=== PATIENT | male | born 1970 | race Caucasian/White ===

== ENCOUNTER 2018-01-28 20:09 | Emergency (ER) | payer OTHER, SELFPAY ==
[2018-01-28 20:16] VITALS: BP 150/85; PULSE 91; RESP 22; TEMP 36.6; O2SAT 100
--- NOTE | 2018-01-28 20:47 | DI.RAD.S_ITS ---
PROCEDURE: XR CHEST 1V INDICATIONS: chest pain TECHNIQUE: One view of the chest was acquired. COMPARISON: None. FINDINGS: Surgical changes and devices: None. Lungs and pleura: No pleural effusions or pneumothorax. Lungs are clear. Mediastinum: Mediastinal contours appear normal. Heart size is normal. Bones and chest wall: No suspicious bony lesions. Overlying soft tissues appear unremarkable. IMPRESSION: Normal for age. Source of current symptoms is not seen. Dictated by: Gaudencio Bell M.D. on 01/28/2018 at 21:32 Approved by: Gaudencio Bell M.D. on 01/28/2018 at 21:32
--- NOTE | 2018-01-28 20:53 | PC.NURSE ---
Chest pain and shortness of breath with exertion on and off for 2 weeks. Worsened yesterday and this morning. Pt states it is very sharp and intermittent in the center of his chest. Was recently worked up for possible COPD. Hx of smoking and drinking. Pt states his father in his 50s from an aortic dissection. Denies any other hx.
[2018-01-28 21:03] LABS: Add Manual Diff / Slide Review NO; Eosinophils Percent Auto 5.2 % (2-4); Hematocrit 45.1 % (41-53); Hemoglobin 15.4 g/dL (13.5-17.5); Mean Corpuscular HGB Conc 34.2 % (30-36); Mean Corpuscular Hemoglobin 31.7 PG (26-34); Mean Corpuscular Volume 92.8 fL (80-100); Monocytes Percent Auto 4.8 % (3-14); Neutrophils Absolute Auto 4800 /uL (3000-5900); Platelet Count 261 X10^3/uL (150-400); Red Blood Cell Count 4.86 X10^6/uL (4.5-5.9); Red Cell Distribution Width 14.3 % (11.6-14.8); White Blood Cell Count 8.6 X10^3/uL (4.5-11.0)
[2018-01-28 21:06] LABS: Alanine Aminotransferase 46 IU/L (21-72); Albumin 4.2 g/dL (3.5-5.0); Albumin Globulin Ratio 1.4 (1.0-2.8); Alkaline Phosphatase 118 U/L (38-126); Aspartate Aminotransferase 32 IU/L (17-59); BUN Creatinine Ratio 11.3 (6-22); Bilirubin Total 0.4 mg/dL (0.2-1.3); Blood Urea Nitrogen 9 mg/dL (9-20); Calcium 9.2 mg/dL (8.4-10.2); Carbon Dioxide 27 mmol/L (22-32); Chloride 103 mmol/L (98-107); Creatine Kinase 79 U/L (55-170); Estimated Glomerular Filt Rate > 60.0 mL/min (>60); Glucose 153 mg/dL (70-100); HEMOLYSIS 19 (0-50); Lipase 87 U/L (23-300); Potassium 3.9 mmol/L (3.4-5.1); Sodium 139 mmol/L (137-145); Total Protein 7.2 g/dL (6.3-8.2)
--- NOTE | 2018-01-28 21:14 | DI.CT.S_ITS ---
PROCEDURE: CT ANGIO CHEST ABDOMEN INDICATIONS: chest pain radiating to back - family hx of dissection TECHNIQUE: Precontrast 5 mm thick sections acquired from the lung apices to the iliac crests. After the administration of intravenous contrast, 2.5 mm thick sections again acquired from the lung apices to the iliac crests. 10 mm maximum intensity projection (MIP) oblique sagittal and coronal reformats were then acquired. For radiation dose reduction, the following was used: automated exposure control. COMPARISON: None. FINDINGS: Image quality: Excellent. AORTA: Intramural hematoma: Absent Maximum hematoma thickness: Not applicable. Focal contrast enhancement: Intramural blood pool (< 2 mm neck or imperceptible communication with aortic lumen): Absent. Ulcer-like projection (broad communication with aortic lumen > 3 mm): Absent. Dissection: Absent Jose classification: Not applicable Maximum aortic diameter: 3.3 cm. [If [place] A dissection, > 5.0 cm has a poorer prognosis. If Jose B dissection, > 4.0 cm has a poorer prognosis.] Periaortic hematoma: Absent. CHEST: Lungs and pleura: No acute airspace opacities. 6 mm nodule noted in the left lung base (series 6, image 76. 2 mm nodule noted in the left lung base (series 6, image 71). 4 mm nodule in the left lung base (series 6, image 80). No pleural effusions or pneumothorax. Central and peripheral airways are patent and normal in caliber. Mediastinum: Heart size is normal. No pericardial effusion. No mediastinal or hilar adenopathy by size criteria. Central pulmonary arteries are normal in size. Esophagus is normal in caliber. No hiatal hernias. Bones and chest wall: No axillary adenopathy by size criteria. Thyroid gland is within normal limits where visualized. No suspicious bony lesions. No vertebral body compression fractures. ABDOMEN: Vasculature: Celiac trunk and mesenteric arteries are patent. Renal arteries are also patent. Solid organs: Liver is normal in size and enhancement. Gallbladder is within normal limits. Biliary system is non dilated. Pancreas enhances normally. Spleen is normal in size and enhancement. No adrenal nodules. Both kidneys are normal in size and enhancement, without hydronephrosis. Peritoneum and bowel: No free fluid or air. Bowel loops are normal in caliber and wall thickness. Visualized appendix is normal. Nodes and vessels: No retroperitoneal or mesenteric adenopathy by size criteria. Inferior vena cava is normal in morphology. Bones: No suspicious bony lesions. No vertebral body compression fractures. Spine degenerative disc disease and facet arthropathy. Miscellaneous: No ventral hernias. IMPRESSION: 1. No evidence of aortic dissection or aortic aneurysm. 2. No acute disease process. 3. Small, bibasilar subpleural lung nodules. Largest nodule measures 6 mm in diameter. Recommend followup imaging 6-12 months based on criteria outlined below. Fleischner Society criteria for SOLID lung nodule followup. Nodule size (mm)Low-risk patientHigh-risk patient<6 (single or multiple)No routine followup.Optional CT at 12 months. 6-8 (single or multiple)CT at 6-12 months, then optional CT at 18-24 mo.CT at 6-12 months, then CT at 18-24 months. >8 (single)CT at 3 months, PET-CT, or biopsy. Same as for low-risk pts. >8 (multiple)CT at 3-6 months, then optional CT at 18-24 mo.CT at 3-6 months, then CT at 18-24 months. Recommendations do not apply to lung cancer screening, patients with immunosuppression, or patients with known primary cancer. Dictated by: Teresita Lanza MD, PhD on 01/29/2018 at 7:53 Approved by: Teresita Lanza MD, PhD on 01/29/2018 at 8:03
[2018-01-28 21:25] LABS: Troponin I < 0.012 ng/mL (0.01-0.034)
[2018-01-28 22:01] VITALS: BP 126/69; PULSE 81; RESP 17; O2SAT 98
[2018-01-28 22:20] LABS: Bacteria Urine None Seen; RBC Urine None Seen (0-5/HPF); WBC Urine None Seen (0-5/HPF)
[2018-01-28 22:29] VITALS: BP 126/82; PULSE 89; RESP 18; O2SAT 97
[2018-01-28 22:39] LABS: Culture Indicated Urine Cult Not Indicated; Urine Comments Microscopic Normal
[2018-01-28 22:51] VITALS: BP 124/75; PULSE 84; RESP 24; O2SAT 97
--- NOTE | 2018-01-28 23:13 | ED_ITS ---
HPI - Chest Pain General Chief Complaint: Chest Pain Stated Complaint: CHEST PAIN History of Present Illness HPI narrative: HPI 43 y/o male presents for evaluation of 1 day of substernal chest pain that mildly radiates anteriorly/posteriorly and has been waxing and waning from mild to 6/10 and lasts for several minutes at a time. Patient is a lifelong smoker. Family history notable for a genetic concern for dissection (father w/o risk factors in early 50s due to dissection). Patient denies recent immobilization, leg trauma, estrogen use, surgery in the last four weeks, hemoptysis, or malignancy in the last 6 months. M/S/F/SocHx notable for: please see HPI; remainder reviewed with patient and in chart. ROS: Negative constitutional, eye, cardiovascular, pulmonary, GI, , MSK, skin , neurologic, psychiatric, endocrine unless noted in the HPI. Exam Gen: Pleasant, non-toxic appearing, resting comfortably. HEENT: NC, AT, PEERL, EOMI. Resp: Clear to auscultation bilaterally, normal work of breathing. Card: RRR with no M/R/G, no crackles in lung bases, no pedal edema, no JVD appreciated. GI: NT/ND Vascular: Both ankles, calves, and thighs of equal size, no calf tenderness to palpation bilaterally. MSK: No chest wall TTP. No visible deformities, strength and tone WNL. Skin: Normal color with no visible lesions. Neuro: AO x 3, no facial asymmetry, vision and hearing WNL. Psych: Mood and affect appropriate. Labs / Imaging (pertinent): WBC 8.6, Hb 1.54, Na 139, K 3.9. Troponin < 0.012 EKG: SR at 90 bpm, no ME segment depressions, no new ST segment changes, new LBBB, or T-wave changes that would suggest acute ischemia. CTA Chest: no CT evidence of acute intrathoracic or acute intra-abdominal pathology. MDM Previous chart, nursing note, and vitals reviewed. A: 43 y/o male presents for evaluation of 1 day of substernal chest pain that mildly radiates anteriorly/posteriorly and has been waxing and waning from mild to 6/10 and lasts for several minutes at a time. DDx and Evaluation: * ACS - doubt ACS given a non-ischemic EKG and a negative troponin greater than six hours from maximal symptom onset. * UA - unlikely given the atypical history and alternate diagnosis. HEART score 1 (Hx - 0, EKG - 0, age - 0, risk factors - 1, troponin - 0; 30 day MACE: less than or equal to 1.7%). * Pericarditis - consider pericarditis unlikely given the lack of ME segment depressions as well as the absence of diffuse ST-segment elevations, lack of reduction of pain when supine, and lack of a friction rub. * Myocarditis - unlikely given the negative troponin and an EKG without characteristic ME-segment or ST-segment changes. * Dissection - no evidence by imaging. * PE - low clinical suspicion given history and alternate diagnosis, further risk stratification (e.g.) Well's not indicated. * Mediastinal Air - no evidence by CXR or auscultation. * Pneumothorax - no evidence by CXR or physical exam. * MSK - doubt given lack of reproducibility on exam. * Endocarditis - no identifiable risk factors, patient afebrile, no new murmurs appreciated on exam; doubt. * GI (Esophageal rupture, GERD) - esophageal rupture effectively excluded given the lack of mediastinal widening, non-toxic appearance, and lack of identifiable risk factors. While not definitively excluded, further evaluation of GERD is deferred to an outpatient setting. ED Course: Vital signs remained stable and within clinically acceptable limits. Disposition: Discharge with PCP follow up. Return to care precautions given verbally and in writing. Impression: Chest Pain. (please reference below for remainder of encounter information) Exam Initial Vital Signs Initial Vital Signs: Vital Signs Temperature 97.9 F 01/28/18 20:16 Pulse Rate 91 H 01/28/18 20:16 Respiratory Rate 22 01/28/18 20:16 Blood Pressure 150/85 H 01/28/18 20:16 Pulse Oximetry 100 01/28/18 20:16 Course Orders Ordered: ED Orders 01/28/18 20:34 Complete Blood Count AUTO DIFF Stat Comprehensive Metabolic Panel Stat Lipase Stat Troponin with CK Cardiac Panel Stat 01/28/18 20:47 XR chest 1V Stat 01/28/18 21:14 CT angio chest abdomen Stat 01/28/18 22:17 Urine Microscopic Stat Discontinued Medications Aspirin (Aspirin Chew) 324 mg PO NOW ONE Stop: 01/28/18 20:48 Last Admin: 01/28/18 21:37 Dose: Vital Signs - 8 hr 01/28/18 20:16 01/28/18 22:01 01/28/18 22:29 Temperature 97.9 F Pulse Rate 91 H 81 89 Respiratory Rate 22 17 18 Blood Pressure 150/85 H Blood Pressure [Left Arm] 126/69 H 126/82 H Pulse Oximetry 100 98 97 01/28/18 22:51 Temperature Pulse Rate 84 Respiratory Rate 24 Blood Pressure Blood Pressure [Left Arm] 124/75 H Pulse Oximetry 97 MDM - Chest Pain Lab Data Result diagrams: 01/28/18 20:34 01/28/18 20:34 Lab Results 01/28/18 01/28/18 01/28/18 Range/Units 20:34 20:34 22:17 WBC 8.6 (4.5-11.0) X10^3/uL RBC 4.86 (4.5-5.9) X10^6/uL Hgb 15.4 (13.5-17.5) g/dL Hct 45.1 (41-53) % MCV 92.8 (80-100) fL MCH 31.7 (26-34) PG MCHC 34.2 (30-36) % RDW 14.3 (11.6-14.8) % Plt Count 261 (150-400) X10^3/uL Neut % (Auto) 56.0 (50-75) % Lymph % (Auto) 33.0 (25-40) % [place] % (Auto) 4.8 (3-14) % Eos % (Auto) 5.2 H (2-4) % Baso % (Auto) 1.0 (0-2) % Neut # (Auto) 4800 (9664-0800) /uL Sodium 139 (137-145) mmol/L Potassium 3.9 (3.4-5.1) mmol/L Chloride 103 (98-107) mmol/L Carbon Dioxide 27 (22-32) mmol/L BUN 9 (9-20) mg/dL Creatinine 0.80 (0.66-1.25) mg/dL Estimated GFR > 60.0 (>60) mL/min BUN/Creatinine Ratio 11.3 (6-22) Glucose 153 H (70-100) mg/dL Calcium 9.2 (8.4-10.2) mg/dL Total Bilirubin 0.4 (0.2-1.3) mg/dL AST 32 (17-59) IU/L ALT 46 (21-72) IU/L Alkaline Phosphatase 118 (38-126) U/L Total Creatine Kinase 79 (55-170) U/L CK-MB (CK-2) TNP Troponin I < 0.012 (0.01-0.034) ng/mL Total Protein 7.2 (6.3-8.2) g/dL Albumin 4.2 (3.5-5.0) g/dL Globulin 3.0 (1.7-4.1) g/dL Albumin/Globulin Ratio 1.4 (1.0-2.8) Lipase 87 (23-300) U/L Urine RBC None seen (0-5/HPF) Urine WBC None seen (0-5/HPF) Urine Bacteria None seen (None) Ur Culture Indicated? Cult not indicated Micro UA Comment Microscopic normal
== END 2018-01-28 23:20 | disposition home or self-care (01) ==
PROVIDERS: Emergency Provider Emergency Medicine
DX: R07.89 Other chest pain (principal)
CPT/HCPCS: 36591; 71045; 71275; 74175; 80053; 81003; 81015; 82550; 82553; 83690; 84484; 85025; 93005; 99283; 99285; Q9967

== ENCOUNTER 2018-08-28 16:39 | Emergency (ER) | payer OTHER, SELFPAY ==
[2018-08-28] VITALS (7 sets, daily range): BP systolic 104–148; BP diastolic 69–96; PULSE 76–93; RESP 12–20; TEMP 36.4; O2SAT 93–99; BMI 34.8
--- NOTE | 2018-08-28 16:45 | DI.RAD.S_ITS ---
PROCEDURE: XR CHEST 1V INDICATIONS: Chest pain. TECHNIQUE: One view of the chest was acquired. COMPARISON: [facility], CR, XR CHEST 1V, 01/28/2018, 21:02. FINDINGS: Surgical changes and devices: Multiple monitoring leads project of the chest. Lungs and pleura: Lungs are clear. No pleural effusions or pneumothorax. There is prominence of the pulmonary vasculature bilaterally. Mediastinum: Mediastinal contours appear normal. Heart size is normal. Bones and chest wall: No acute osseous abnormality. IMPRESSION: No acute cardiopulmonary disease. Dictated by: Faisal Connors M.D. on 08/28/2018 at 17:08 Approved by: Faisal Connors M.D. on 08/28/2018 at 17:09
[2018-08-28 17:00] LABS: Add Manual Diff / Slide Review NO; Basophils Absolute Auto 100 /uL (0-100); Basophils Percent Auto 0.7 % (0-2); Eosinophils Absolute Auto 300 /uL (0-450); Eosinophils Percent Auto 3.5 % (2-4); Hematocrit 45.9 % (41-53); Hemoglobin 15.9 g/dL (13.5-17.5); Lymphocytes Absolute Auto 3600 /uL (1100-4500); Lymphocytes Percent Auto 40.1 % (25-40); Mean Corpuscular HGB Conc 34.7 % (30-36); Mean Corpuscular Hemoglobin 31.5 PG (26-34); Mean Corpuscular Volume 90.7 fL (80-100); Monocytes Absolute Auto 800 /uL (0-900); Monocytes Percent Auto 8.7 % (3-14); Neutrophils Absolute Auto 4200 /uL (1500-7000); Platelet Count 312 X10^3/uL (150-400); Red Blood Cell Count 5.06 X10^6/uL (4.5-5.9); White Blood Cell Count 8.9 X10^3/uL (4.5-11.0)
--- NOTE | 2018-08-28 17:14 | ED.CHESTPAIN ---
HPI - Chest Pain General Chief Complaint: Chest Pain Stated Complaint: CHEST PAIN Time Seen by Provider: 08/28/18 17:00 Source: patient Mode of arrival: ambulatory Limitations: no limitations History of Present Illness HPI narrative: Patient is a 48-year-old male who presents with chest pain has been ongoing for at least a month. Has progressively gotten worse over the last 3 days. He describes it is in the center of his chest sharp stabbing lasting only a few seconds it is much worse when he lies flat. He is able to sleep on his side throughout the night without any difficulty. He denies any specific pain with exertion but he does get short of breath with exertion. He does complain of weight gain of 50 lb. He denies any fever or chills no productive cough. He feels like his extremities are edematous. He has been taking naproxen and Prilosec. Without any relief He is self-diagnosed himself with pericarditis and possibly constrictive pericarditis. MD complaint: chest pain Related Data Home Medications Medication Instructions Recorded Confirmed albuterol sulfate [ProAir HFA] 1 puff INHALATION PRN PRN 08/28/18 08/28/18 fluticasone-salmeterol [Advair HFA] 1 puff INHALATION BID 08/28/18 08/28/18 naproxen 500 mg PO BID 08/28/18 08/28/18 omeprazole 20 mg PO DAILY 08/28/18 08/28/18 varenicline [Chantix Continuing 08/28/18 Month Box] Previous Rx's Medication Instructions Recorded ibuprofen 800 mg PO TID PRN #60 tab 08/28/18 Allergies Allergy/AdvReac Type Severity Reaction Status Date / Time No Known Drug Allergies Allergy Verified 08/28/18 16:46 Review of Systems Review of Systems Constitutional Denies chills, Denies fever(s), Denies lethargy and Denies weakness Cardiovascular Reports chest pain, Denies syncope, Reports pedal edema, Reports dyspnea on exertion and Denies orthopnea Respiratory Denies chest congestion, Reports pain with cough, Reports dyspnea on exertion and Denies wheezing Gastrointestinal Gastrointestinal: Denies abdominal pain, Denies change in bowel habits, Denies diarrhea, Denies nausea and Denies vomiting Genitourinary Denies hematuria, Denies flank pain, Denies urinary incontinence and Denies urinary urgency Musculoskeletal Denies back pain, Denies muscle weakness, Denies numbness and Denies tingling Integumentary/Breasts Denies pruritus, Denies erythema, Denies rash and Denies wounds Neurologic Denies syncope, Denies numbness, Denies tingling and Denies weakness Allergic/Immunologic Denies wheezing PFSH Family History Father Ascending aortic dissection Social History Smoking Status: Current every day smoker Family History Father Ascending aortic dissection Social History Smoking Status: Current every day smoker Exam Initial Vital Signs Initial Vital Signs: Vital Signs Temperature 97.6 F 08/28/18 16:46 Pulse Rate 93 H 08/28/18 16:46 Respiratory Rate 18 08/28/18 16:46 Blood Pressure 148/96 H 08/28/18 16:46 Pulse Oximetry 98 08/28/18 16:46 GENERAL: Well-appearing, well-nourished and in no acute distress. HEENT: Head atraumatic,EOMI, pupils reactive, CARDIOVASCULAR: Regular rate and rhythm without murmurs, rubs or gallops. RESPIRATORY: Breath sounds equal bilaterally, no wheezes rales or rhonchi. ABDOMEN: Soft, slightly distended no pain no guarding no rebound EXTREMITIES: Normal range of motion, no clubbing or edema. Neurovascularly intact NEUROLOGICAL: Alert and oriented x4.Normal gait and speech. SKIN: Warm, dry, no laceration, no petechiae, no rashes or lesions. Scores PERC Score Age greater than or equal to 50 years: No Heart rate greater than or equal to 100 bpm: No Room Air O2 Sat less than 95%: No Unilateral leg swelling: No Recent trauma or surgery: No Hemoptysis: No Prior PE or DVT: No Hormone Use: No Total PERC Score: 0 Wells' Criteria for PE Clinical signs and symptoms of PE: No PE is #1 Dx or equally likely: No Heart rate > 100: No Immobilization at least 3 days or surg in previous 4 weeks: No History of PE or DVT: No Hemoptysis: No Malignancy w/Treatment within 6 months or palliative: No Wells' PE Score total: 0 Course Orders Ordered: ED Orders 08/28/18 16:45 XR chest 1V Stat EKG-12 Lead Stat 08/28/18 16:50 BNP [B Type Natriuretic Peptide] Stat Complete Blood Count AUTO DIFF Stat Comprehensive Metabolic Panel Stat D Dimer Stat Lipase Stat Partial Thromboplastin Time Stat Prothrombin Time INR Stat Troponin & CK Cardiac Panel Stat Nitroglycerin (Nitrostat) 0.4 mg SL [id number] PRN PRN Reason: Chest Pain Discontinued Medications Albuterol (Ventolin) 2.5 mg INH NOW ONE Stop: 08/28/18 17:47 Last Admin: 08/28/18 18:24 Dose: 2.5 mg Aspirin (Aspirin Chew) 324 mg PO NOW ONE Stop: 08/28/18 16:46 Last Admin: 08/28/18 18:29 Dose: 324 mg Ketorolac Tromethamine (Toradol) 30 mg IV NOW ONE Stop: 08/28/18 17:46 Last Admin: 08/28/18 18:29 Dose: 30 mg Pantoprazole Sodium (Protonix) 40 mg IV NOW ONE Stop: 08/28/18 17:46 Last Admin: 08/28/18 18:29 Dose: 40 mg Vital Signs - 8 hr 08/28/18 16:46 08/28/18 17:00 08/28/18 17:30 Temperature 97.6 F Pulse Rate 93 H 82 78 Respiratory Rate 18 20 19 Blood Pressure 148/96 H Blood Pressure [Left Arm] 126/77 117/80 Pulse Oximetry 98 99 99 08/28/18 18:00 08/28/18 18:25 08/28/18 18:30 Temperature Pulse Rate 81 76 87 Respiratory Rate 12 18 20 Blood Pressure Blood Pressure [Left Arm] 118/74 104/69 Pulse Oximetry 98 98 93 MDM - Chest Pain Lab Data Attestation: I reviewed the patient's lab results. Result diagrams: 08/28/18 16:50 08/28/18 16:50 Lab Results 08/28/18 08/28/18 08/28/18 Range/Units 16:50 16:50 16:50 WBC 8.9 (4.5-11.0) X10^3/uL RBC 5.06 (4.5-5.9) X10^6/uL Hgb 15.9 (13.5-17.5) g/dL Hct 45.9 (41-53) % MCV 90.7 (80-100) fL MCH 31.5 (26-34) PG MCHC 34.7 (30-36) % RDW 14.0 (11.6-14.8) % Plt Count 312 (150-400) X10^3/uL Neut % (Auto) 47.0 L (50-75) % Lymph % (Auto) 40.1 H (25-40) % [place] % (Auto) 8.7 (3-14) % Eos % (Auto) 3.5 (2-4) % Baso % (Auto) 0.7 (0-2) % Neut # (Auto) 4200 (8624-5096) /uL Lymph # (Auto) 3600 (9220-3769) /uL [place] # (Auto) 800 (0-900) /uL Eos # (Auto) 300 (0-450) /uL Baso # (Auto) 100 (0-100) /uL PT 11.4 (10.1-12.7) SECONDS INR 1.0 (0.9-1.3) APTT 33 (26.4-36.2) SECONDS D-Dimer Sodium 139 (137-145) mmol/L Potassium 4.3 (3.4-5.1) mmol/L Chloride 103 (98-107) mmol/L Carbon Dioxide 26 (22-32) mmol/L BUN 21 H (9-20) mg/dL Creatinine 0.90 (0.66-1.25) mg/dL Estimated GFR > 60.0 (>60) mL/min BUN/Creatinine Ratio 23.3 H (6-22) Glucose 102 H (70-100) mg/dL Calcium 9.4 (8.4-10.2) mg/dL Total Bilirubin 0.4 (0.2-1.3) mg/dL AST 46 (17-59) IU/L ALT 67 (21-72) IU/L Alkaline Phosphatase 116 (38-126) U/L Total Creatine Kinase 81 (55-170) U/L CK-MB (CK-2) TNP CK-MB (CK-2) Rel Index TNP Troponin I < 0.012 (0.01-0.034) ng/mL B-Natriuretic Peptide (<100) Total Protein 7.7 (6.3-8.2) g/dL Albumin 4.5 (3.5-5.0) g/dL Globulin 3.2 (1.7-4.1) g/dL Albumin/Globulin Ratio 1.4 (1.0-2.8) Lipase 102 (23-300) U/L 08/28/18 08/28/18 Range/Units 16:50 16:50 WBC (4.5-11.0) X10^3/uL RBC (4.5-5.9) X10^6/uL Hgb (13.5-17.5) g/dL Hct (41-53) % MCV (80-100) fL MCH (26-34) PG MCHC (30-36) % RDW (11.6-14.8) % Plt Count (150-400) X10^3/uL Neut % (Auto) (50-75) % Lymph % (Auto) (25-40) % [place] % (Auto) (3-14) % Eos % (Auto) (2-4) % Baso % (Auto) (0-2) % Neut # (Auto) (0959-5633) /uL Lymph # (Auto) (4150-3266) /uL [place] # (Auto) (0-900) /uL Eos # (Auto) (0-450) /uL Baso # (Auto) (0-100) /uL PT (10.1-12.7) SECONDS INR (0.9-1.3) APTT (26.4-36.2) SECONDS D-Dimer TNP Sodium (137-145) mmol/L Potassium (3.4-5.1) mmol/L Chloride (98-107) mmol/L Carbon Dioxide (22-32) mmol/L BUN (9-20) mg/dL Creatinine (0.66-1.25) mg/dL Estimated GFR (>60) mL/min BUN/Creatinine Ratio (6-22) Glucose (70-100) mg/dL Calcium (8.4-10.2) mg/dL Total Bilirubin (0.2-1.3) mg/dL AST (17-59) IU/L ALT (21-72) IU/L Alkaline Phosphatase (38-126) U/L Total Creatine Kinase (55-170) U/L CK-MB (CK-2) CK-MB (CK-2) Rel Index Troponin I (0.01-0.034) ng/mL B-Natriuretic Peptide < 100 (<100) Total Protein (6.3-8.2) g/dL Albumin (3.5-5.0) g/dL Globulin (1.7-4.1) g/dL Albumin/Globulin Ratio (1.0-2.8) Lipase (23-300) U/L ECG Data Attestation: I personally reviewed and interpreted this ECG as follows: Prior ECG tracings: not available for review Interpretation: EKG 1. Significant artifact but sinus rhythm rate 80 EKG 2. Normal sinus rhythm rate 79 no p.r. depression IN interval [address] changes MDM Narrative Medical decision making narrative: Patient does have signs and symptoms consistent with pericarditis. I did do a bedside ultrasound I did not appreciate any pericardial effusion. He certainly does not have any signs of acute tamponade and remains hemodynamically stable. He is not of been maxed out on NSAIDs. In fact I would change him to ibuprofen 800 mg 3 times a day for 2-4 weeks. Then if he fails that he would need colchicine. Do recommend that he possibly see Cardiology and possibly have an echocardiogram as outpatient. I also think that restarting his Advair will help his increased shortness of breath with exertion. Patient is a low risk for PE. D-dimer was ordered unfortunately not able to be done due to hyperlipidemia in the blood. I did discuss this result with the patient as well and recommended he have his cholesterol recheck. He denies eating any fatty foods of right before arrival. Discharge Plan Departure Patient Disposition: Home Clinical Impression: Pericarditis Instructions: Pericarditis -- Adult Activity Restrictions/Additional Instructions: *You have been diagnosed with pericarditis *What to do: You may require cardiology consultation and/or echocardiogram if you do not respond to medication and treatment *Continue to take medications as directed -stop taking naproxen Ibuprofen 800 mg 3 times a day for 2 weeks-->sent to [facility] in [place] *Follow up with your primary care provider in 2-3 days *Return to ER if you should have increasing pain, shortness of breath, fever or any new, worsening or concerning symptoms Prescriptions: New ibuprofen 800 mg tablet 800 mg PO TID PRN (Reason: pain) Qty: 60 RF: 0 No Action fluticasone-salmeterol [Advair HFA] 230-21 mcg/actuation HFA aerosol inhaler 1 puff Inhalation BID RF: 0 varenicline [Chantix Continuing Month Box] 1 mg tablet RF: 0 omeprazole 20 mg capsule,delayed release(/EC) 20 mg PO DAILY RF: 0 albuterol sulfate [ProAir HFA] 90 mcg/actuation HFA aerosol inhaler 1 puff Inhalation PRN PRN (Reason: Shortness Of Breath) RF: 0 naproxen 500 mg tablet 500 mg PO BID RF: 0 Referrals: [facility] [Provider Group] Provider,Conversion [Non-Staff] -
[2018-08-28 17:18] LABS: Alanine Aminotransferase 67 IU/L (21-72); Albumin 4.5 g/dL (3.5-5.0); Albumin Globulin Ratio 1.4 (1.0-2.8); Alkaline Phosphatase 116 U/L (38-126); Aspartate Aminotransferase 46 IU/L (17-59); BUN Creatinine Ratio 23.3 (6-22); Bilirubin Total 0.4 mg/dL (0.2-1.3); Blood Urea Nitrogen 21 mg/dL (9-20); Calcium 9.4 mg/dL (8.4-10.2); Carbon Dioxide 26 mmol/L (22-32); Chloride 103 mmol/L (98-107); Creatine Kinase 81 U/L (55-170); Estimated Glomerular Filt Rate > 60.0 mL/min (>60); Globulin 3.2 g/dL (1.7-4.1); Glucose 102 mg/dL (70-100); HEMOLYSIS 27 (0-50); Lipase 102 U/L (23-300); PTT Partial Thromboplastin Tim 33 SECONDS (26.4-36.2); Potassium 4.3 mmol/L (3.4-5.1); Prothrombin Time 11.4 SECONDS (10.1-12.7); Sodium 139 mmol/L (137-145); Total Protein 7.7 g/dL (6.3-8.2)
[2018-08-28 17:24] LABS: Troponin I < 0.012 ng/mL (0.01-0.034)
[2018-08-28 17:34] LABS: B Type Natriuretic Peptide < 100 (<100)
--- NOTE | 2018-08-28 18:18 | PC.NURSE ---
pt states pain is worse when lying down and better when he sits up.
[2018-08-28] MEDS: ALBUTEROL 2.5 MG/3 ML NEB (ADULT) INH (18:24)
[2018-08-28] MEDS: PANTOPRAZOLE 40 MG VIAL IV (18:29)
[2018-08-28] MEDS: ASPIRIN 81 MG TAB 324 MG PO (18:29)
[2018-08-28] MEDS: KETOROLAC 60 MG/2 ML VIAL 30 MG IV (18:29)
== END 2018-08-28 19:50 | disposition home or self-care (01) ==
PROVIDERS: Emergency Provider Emergency Medicine
DX: I31.9 Disease of pericardium, unspecified (principal)
CPT/HCPCS: 36591; 71045; 80053; 82550; 83690; 83880; 84484; 85025; 85610; 85730; 93005; 93041; 94640; 96374; 96375; 99284; 99285; C9113; J1885; J7613

== ENCOUNTER → 2018-11-27 16:18 | Outpatient (CLI) | payer OTHER, SELFPAY ==
[2018-11-27 17:23] LABS: Erythrocyte Sedimentation Rate 1 MM/HR (0-15)
== END ==
PROVIDERS: Visit Provider Internal Medicine Cardiovascular Disease
DX: R07.89 Other chest pain (principal); R00.2 Palpitations
CPT/HCPCS: 36415; 85651; 86850

== ENCOUNTER 2019-03-05 11:31 | Day surgery (SDC) | payer OTHER, SELFPAY ==
--- NOTE | 2019-03-05 | PATH_ITS ---
[facility] Accession Number: [id number] . 01 Material submitted: . PART A: gastrointestinal site - GASTRIC BODY AND ANTRUM PART B: esophagus - ESOPHAGEAL BIOPSIES PART C: colon - CECAL POLYP PART D: colon - TRANSVERSE COLON POLYP X2 . 01 Clinical history: . A: FOR H.PYLORI B: RULE OUT EOE . 02 Diagnosis: A. Stomach, Body and Antrum, Biopsies: Antral and body-type mucosa with no diagnostic abnormality. Negative for Helicobacter by immunohistochemistry. Negative for intestinal metaplasia. Negative for dysplasia and malignancy. . B. Esophagus, Biopsies: Squamous epithelium with no diagnostic abnormality. Intraepithelial eosinophils are not increased. Negative for dysplasia and malignancy. . C. Cecum, Polyp, Biopsy: Benign lymphoid aggregate. . D. Transverse Colon, Polyps x2, Biopsies: Sessile serrated adenomas. [facility]/03/07/2019 . 02 Electronically signed: . Narcisa Li MD, Pathologist NPI- [id number] . 01 Gross description: . Part A: GASTRIC BODY AND ANTRUM: Received in formalin are 3 fragment(s) of liz, soft tissue measuring 0.1 x 0.1 x 0.1 cm to 0.3 x 0.2 x 0.2 cm which is entirely submitted and submitted entirely in 1 cassette(s) Part B: ESOPHAGEAL BIOPSIES: Received in formalin are 3 fragment(s) of liz, soft tissue measuring 0.1 x 0.1 x 0.1 cm to 0.3 x 0.1 x 0.1 cm which is entirely submitted and submitted entirely in 1 cassette(s) Part C: CECAL POLYP: Received in formalin is 1 fragment(s) of liz, soft tissue measuring 0.4 x 0.2 x 0.2 cm which is entirely submitted and submitted entirely in 1 cassette(s) Part D: TRANSVERSE COLON POLYP X2: Received in formalin are 2 fragment(s) of liz, soft tissue measuring 0.3 x 0.3 x 0.2 cm to 0.6 x 0.5 x 0.3 cm which is entirely submitted and submitted entirely in 1 cassette(s) /DM /DM . 02 Microscopic: . A. An immunohistochemical stain was performed to evaluate for Helicobacter organisms and is negative. The control stain showed appropriate reactivity. . * This test was developed and its performance characteristics determined by [facility]. It has not been cleared or approved by the U.S. Food and Drug Administration. The FDA has determined that such clearance or approval is not necessary. This test is used for clinical purposes. It should not be regarded as investigational or for research. . 02 Pathologist provided ICD-10: D12.3 . 02 CPT . 482837, 191864, 090700, 458595, X03655 Performed at: [facility] [address] [place] [address], [place], [place] [id number] MD Luis Carlos Mcfarland MD Phone: [phone] Performed at: 02 [facility] [address] [place], [place] [id number] MD Narcisa Li MD Phone: [phone]
--- NOTE | 2019-03-05 07:53 | PM.HP.1 ---
History of Present Illness Date Patient Seen: 03/05/19 Chief complaint: [id number]*Collect $61 copay* Narrative: 48-year-old male who I had seen in the office 01/06/2019 for left lower quadrant pain, and GERD symptoms, atypical chest pain; who is here for evaluation by means of colonoscopy and upper endoscopy. CT abdomen pelvis 01/15/2018 shows fatty liver otherwise normal bowel. Patient History Medical History (Updated 03/05/19 @ 12:20 by Laquita Berry RN) Atypical chest pain (Acute) COPD (chronic obstructive pulmonary disease) (Acute) Enlarged prostate (Acute) Former smoker (Acute) GERD (gastroesophageal reflux disease) (Acute) Palpitations (Acute) Weight gain (Acute) Surgical History (Updated 03/05/19 @ 12:12 by Laquita Berry RN) H/O left inguinal hernia repair (Acute) History of tonsillectomy and adenoidectomy (Acute) Family History (Updated 08/28/18 @ 17:20 by Jie Brock DO) Father Ascending aortic dissection Social History household members: spouse Smoking Status: Current every day smoker Family & Social History Family History (Updated 08/28/18 @ 17:20 by Jie Brock DO) Father Ascending aortic dissection Tobacco & Substance use: Smoking Status Current every day smoker alcohol intake frequency holiday/special occasion Substance Use Type does not use Meds Home Medications Medication Instructions Recorded Confirmed Type albuterol sulfate [ProAir HFA] 1 puff INHALATION PRN PRN 08/28/18 03/05/19 History fluticasone propion-salmeterol 1 puff INHALATION BID 08/28/18 03/05/19 History [Advair HFA] omeprazole 20 mg PO DAILY 08/28/18 03/05/19 History Allergies Allergy/AdvReac Type Severity Reaction Status Date / Time No Known Drug Allergies Allergy Verified 03/05/19 12:08 Exam Narrative Exam Narrative: General: Patient is obese, not in apparent distress Cardiovascular: Regular rate and rhythm, no murmurs, rubs, or gallops; no evidence of edema; no palpable abdominal aortic aneurysm Gastrointestinal: Normoactive bowel sounds, soft, nontender, nondistended, no rebound tenderness, no hepatosplenomegaly, no evidence of hernia Assessment & Plan Assessment & Plan narrative: 48-year-old male with a history of GERD symptoms and left lower quadrant pain here for an EGD and colonoscopy for further evaluation. Regarding the procedure(s), the risks and potential complications, benefits, and alternatives (including not doing the procedure) were discussed with the patient. The risks include but are not limited to bleeding, splenic injury, infection, perforation which may require surgical intervention, missed lesions, and adverse reactions to sedative medicines. After a question and answer period, the patient agreed to proceed with the procedure(s) and gives informed consent.
[2019-03-05 12:01] VITALS: BP 125/91; PULSE 99; RESP 15; TEMP 36.3; BMI 32.6
[2019-03-05] MEDS: SODIUM CHLORIDE 0.9% 1,000 ML 70 ML IV (12:01)
--- NOTE | 2019-03-05 13:01 | PM.OP.ENDO ---
Operative Date/Time/Diagnoses Date of procedure: 03/05/19 Procedure Notes Procedure in detail: Surgeon: Franco Álvarez MD Procedure: Esophagogastroduodenoscopy with biopsy and colonoscopy with polypectomy Preoperative diagnosis: GERD, atypical chest pain; left lower quadrant pain, change in stool caliber Postoperative diagnosis: Normal EGD status post esophageal and gastric biopsies; colon polyps x3, grade 1 internal hemorrhoids Medications: Conscious sedation using lidocaine gargle, 8 mg IV of Midazolam and 100 mcg IV of Fentanyl for EGD; 8 mg IV of Midazolam and 100 mcg IV of Fentanyl (total for both procedures) Preanesthesia Assessment An H and P was performed/updated and the Px?s ASA class is 2. The procedure was discussed in detail with the patient. The potential risks and complications including infection, bleeding, missed lesions, perforation, need for surgery in case of perforation, prolonged hospital stay, and were explained. A brief question and answer period was allotted and once all questions were answered, informed consent was obtained. The patient was brought back to the procedure room and placed on standard monitoring. The patient?s vital signs were monitored continuously throughout the entire procedure. Prior to starting, a timeout was performed to confirm the patient?s identity, allergies, medications, and procedure. Procedure in detail The patient was placed in left lateral decubitus position and a bite block was inserted. The tip of the upper endoscope was placed into the mouth and advanced without difficulty under direct visualization into the esophagus. Esophagus: Normal-appearing mucosa with Z-line at 40 cm from the incisors. Mid and proximal esophageal biopsies taken to rule out EOE Stomach: Normal appearing mucosa. Biopsies taken from body and antrum to rule out H pylori Duodenum: Normal appearing mucosa up to the 2nd portion After the upper endoscopy, preparations were made for the colonoscopy. Once adequate sedation was obtained a CADE was performed. The digital rectal examination did not reveal any palpable lesions. The tip of the colonoscope was placed in the anal canal and advanced without difficulty all the way to the cecum which was identified by the appendiceal orifice and the ileocecal valve. In the cecum, there was note of a 2 mm sessile polyp adjacent to the appendiceal orifice. This was removed by means of cold Jumbo forceps. Resection and retrieval was complete with minimal bleeding In the transverse colon, there was note of 2 sessile polyps measuring 4-6 mm. These were removed by means of cold snare. Resection retrieval was complete with minimal bleeding An extensive examination of the sigmoid colon was performed with no note of any tumors or strictures. Retroflexion was performed in the rectum which revealed grade 1 internal hemorrhoids The patient tolerated the procedure well and will be brought back to the recovery area to be discharged once criteria are met. The prep was judged to be good and adequate to identify polyps less than 5 mm. The withdrawal time was 9 minutes. The total physician intraservice time was 25 minutes. Complications There were no complications and estimated blood loss was minimal. Recommendations Resume previous diet Anti-reflux measures Try using probiotics once or twice daily for the next 2 months Continue using Citrucel powder 2 tbsp twice daily for the next 1-2 months Continue outpatient medications Follow-up pathology results Repeat colonoscopy in 3 or 5 or 10 years depending on pathology results Follow-up at our office in 2 months. An emergency contact number was given to the patient for any complications related to the procedure
[2019-03-05] MEDS: LIDOCAINE 4% SOLN 50 ML 20 ML TOP (13:18)
[2019-03-05] MEDS: fentaNYL 250 MCG/5 ML INJ IV (13:35)
[2019-03-05] MEDS: MIDAZOLAM 5 MG/5 ML VIAL IV (13:36)
[2019-03-05 13:50] VITALS: BP 124/78; PULSE 96; RESP 15; TEMP 36.6; O2SAT 97
[2019-03-05 13:51] VITALS: BP 121/75; PULSE 89; RESP 22; O2SAT 96
[2019-03-05 13:59] VITALS: BP 116/86; PULSE 83; RESP 18; O2SAT 99
[2019-03-05 14:01] VITALS: BP 110/76; PULSE 91; RESP 20; TEMP 36.9; O2SAT 98
[2019-03-05 14:20] VITALS: BP 122/85; PULSE 84; RESP 14; TEMP 36.3; O2SAT 98
--- NOTE | 2019-03-05 14:36 | SUR.PHASEII ---
1420 Reviewed findings/report with patient and spouse. Pt. asking a lot of questions about the findings, if polyps can cause pain, what else could be causing LLQ pain, etc. It appeared that he almost cried knowing that they didn't find a cause for the pain. was friendly pre-op, seems subdued, barely speaking afterwards. VSS.
== END 2019-03-05 14:23 | disposition home or self-care (01) ==
PROVIDERS: Visit Provider Internal Medicine Gastroenterology
PROC: 0DJ08ZZ Inspection of Upper Intestinal Tract, Via Natural or Artificial Opening Endoscopic (ICD-10-PCS; CPT 43235; principal; 2019-03-05 11:30)
PROC: 0DJD8ZZ Inspection of Lower Intestinal Tract, Via Natural or Artificial Opening Endoscopic (ICD-10-PCS; CPT 45378; 2019-03-05 11:30)
DX: D12.3 Benign neoplasm of transverse colon (principal); K63.5 Polyp of colon; R10.32 Left lower quadrant pain; K21.9 Gastro-esophageal reflux disease without esophagitis; R07.89 Other chest pain; K64.0 First degree hemorrhoids; J44.9 Chronic obstructive pulmonary disease, unspecified; N40.0 Benign prostatic hyperplasia without lower urinary tract symptoms; F17.210 Nicotine dependence, cigarettes, uncomplicated
CPT/HCPCS: 45385; 45380; 43239; 88305; 88342; J2250; J3010

== ENCOUNTER 2019-04-01 12:18 | Emergency (ER) | payer OTHER, SELFPAY ==
[2019-04-01 12:28] VITALS: BP 155/96; PULSE 86; RESP 13; TEMP 36.8; O2SAT 98
--- NOTE | 2019-04-01 12:31 | ED.ARRPALP ---
HPI - Arrhythmia/Palpitations General Chief Complaint: Arrhythmia/Palpitations Stated Complaint: IRREGULAR HB/FEEL PASS OUT Time Seen by Provider: 04/01/19 12:19 Source: patient Mode of arrival: ambulatory Limitations: no limitations History of Present Illness HPI narrative: 48-year-old male here for evaluation of 3 days of occasionally having palpitations. He states that he feels like his heart is beating fast and then slows down. He states he feels like he needs to cough in order to ?get it started again ?he states that today he has also had some lightheadedness with that. He states that he felt like he was getting tunnel vision. [place] like he was going to pass out. No chest pain. He is concerned about diabetes. He states that he had a stress test within the past year and was told by the post doc fellowship that over the was okay. He states that he did have ?palpitations? during the stress test. He is unsure what his post doc fellowship called the findings on the EKG at the time however he states that ?PVCs ?does sound familiar. Related Data Home Medications Medication Instructions Recorded Confirmed albuterol sulfate 1 puff INHALATION PRN PRN 08/28/18 03/05/19 fluticasone propion-salmeterol 1 puff INHALATION BID 08/28/18 03/05/19 omeprazole 20 mg PO DAILY 08/28/18 03/05/19 Allergies Allergy/AdvReac Type Severity Reaction Status Date / Time No Known Drug Allergies Allergy Verified 03/05/19 12:08 Review of Systems Constitutional Constitutional: Denies fever(s) Cardiovascular Cardiovascular: Denies chest pain, Reports palpitations and Denies dyspnea Respiratory Respiratory: Denies cough and Denies dyspnea Gastrointestinal Gastrointestinal: Reports change in bowel habits, Denies nausea and Denies vomiting Musculoskeletal Musculoskeletal: Denies myalgias and Denies arthralgias Integumentary/Breasts Skin/Breast: Denies lesions and Denies rash Neurologic Neurologic: Denies behavioral changes Psychiatric Psychiatric: Denies behavioral changes Endocrine Endocrine: Reports palpitations Hematologic/Lymphatic Hematologic/Lymphatic: Denies easy bleeding and Denies easy bruising [facility] Medical History Atypical chest pain (Acute) COPD (chronic obstructive pulmonary disease) (Acute) Enlarged prostate (Acute) Former smoker (Acute) GERD (gastroesophageal reflux disease) (Acute) Palpitations (Acute) Weight gain (Acute) Surgical History (Updated 03/05/19 @ 12:12 by Laquita Berry RN) H/O left inguinal hernia repair (Acute) History of tonsillectomy and adenoidectomy (Acute) Family History (Updated 08/28/18 @ 17:20 by Jie Brock DO) Father Ascending aortic dissection Social History household members: spouse Smoking Status: Current every day smoker Family History (Updated 08/28/18 @ 17:20 by Jie Brock DO) Father Ascending aortic dissection Social History household members: spouse Smoking Status: Current every day smoker Exam Initial Vital Signs Initial Vital Signs: Vital Signs Temperature 98.2 F 04/01/19 12:28 Pulse Rate 86 04/01/19 12:28 Respiratory Rate 13 04/01/19 12:28 Blood Pressure 155/96 H 04/01/19 12:28 Pulse Oximetry 98 04/01/19 12:28 Const General: cooperative and comfortable Orientation: alert, awake and oriented x3 HENMT Head: normal to inspection and normocephalic Resp Effort & Inspection: normal respiratory effort Auscultation: clear to auscultation bilaterally Cardio Rate: regular rate Rhythm: regular rhythm Pulses: radial pulses present GI Inspection: non-distended Palpation: soft Skin Lesions: no lesions Rashes: no rashes Neuro General: alert and awake Extrem General: capillary refill normal Psych Appearance: grossly normal and well kempt Speech and Movement: restless Affect: anxious affect Course Orders Ordered: ED Orders 04/01/19 12:20 EKG-12 Lead Stat 04/01/19 12:25 Basic Metabolic Panel Stat Complete Blood Count AUTO DIFF Stat Vital Signs Vital signs: Vital Signs - 8 hr 04/01/19 12:28 04/01/19 13:00 Temperature 98.2 F Pulse Rate 86 75 Respiratory Rate 13 22 Blood Pressure 155/96 H Blood Pressure [Right Arm] 122/75 Pulse Oximetry 98 94 MDM - Arrhythmia/Palpitations Lab Data Attestation: I reviewed the patient's lab results. Result diagrams: 04/01/19 12:25 09/03/19 12:25 Labs: Lab Results 04/01/19 04/01/19 Range/Units 12:25 12:25 WBC 9.2 (4.5-11.0) X10^3/uL RBC 5.22 (4.5-5.9) X10^6/uL Hgb 16.7 (13.5-17.5) g/dL Hct 47.4 (41-53) % MCV 90.8 (80-100) fL MCH 31.9 (26-34) PG MCHC 35.1 (30-36) % RDW 13.6 (11.6-14.8) % Plt Count 304 (150-400) X10^3/uL Neut % (Auto) 57.1 (50-75) % Lymph % (Auto) 32.9 (25-40) % [place] % (Auto) 6.8 (3-14) % Eos % (Auto) 1.9 L (2-4) % Baso % (Auto) 1.3 (0-2) % Neut # (Auto) 5200 (8275-2348) /uL Lymph # (Auto) 3000 (0129-4600) /uL [place] # (Auto) 600 (0-900) /uL Eos # (Auto) 200 (0-450) /uL Baso # (Auto) 100 (0-100) /uL Sodium 139 (137-145) mmol/L Potassium 4.1 (3.4-5.1) mmol/L Chloride 105 (98-107) mmol/L Carbon Dioxide 25 (22-32) mmol/L BUN 9 (9-20) mg/dL Creatinine 0.70 (0.66-1.25) mg/dL Estimated GFR > 60.0 (>60) mL/min BUN/Creatinine Ratio 12.9 (6-22) Glucose 110 H (70-100) mg/dL Calcium 9.9 (8.4-10.2) mg/dL ECG Data Attestation: I personally reviewed and interpreted this ECG as follows: Prior ECG tracings: not available for review Interpretation: Sinus rhythm Ventricular rate of 94 Normal axis Normal intervals Normal QRS Normal QTC No ST T wave changes MDM Narrative Medical decision making narrative: Patient has had no symptoms and no ectopy has been here in the emergency department. His EKG is unremarkable. Labs unremarkable. His symptoms are fairly consistent with PVCs however we do not have monitoring evidence of this. Discussed this with the patient. Will have him follow with his primary doctor to discuss Holter monitor. He was given return precautions and follow-up instructions. He expressed understanding and agreement plan. Discharge Plan Departure Patient Disposition: Home Clinical Impression: Palpitations Instructions: Premature Ventricular Beats, DI for Palpitations Activity Restrictions/Additional Instructions: You have no restrictions on your activities. Keep all of your scheduled medical apartments. Contact your primary provider for a follow-up and to discuss the indications for a Holter monitor. Prescriptions: No Action fluticasone propion-salmeterol 230-21 mcg/actuation HFA aerosol inhaler 1 puff Inhalation BID RF: 0 omeprazole 20 mg capsule,delayed release(DR/EC) 20 mg PO DAILY RF: 0 albuterol sulfate 90 mcg/actuation HFA aerosol inhaler 1 puff Inhalation PRN PRN (Reason: Shortness Of Breath) RF: 0
--- NOTE | 2019-04-01 12:31 | PC.NURSE ---
pt reports he started having palpatations that started 2 days ago. today symptoms started when he was at rest. pt describes episodes as feeling like he heart starts to beat fast then slows down, and he has to cough to start his heart back.
[2019-04-01 12:36] LABS: Add Manual Diff / Slide Review NO; Basophils Absolute Auto 100 /uL (0-100); Basophils Percent Auto 1.3 % (0-2); Eosinophils Absolute Auto 200 /uL (0-450); Eosinophils Percent Auto 1.9 % (2-4); Hematocrit 47.4 % (41-53); Hemoglobin 16.7 g/dL (13.5-17.5); Lymphocytes Absolute Auto 3000 /uL (1100-4500); Lymphocytes Percent Auto 32.9 % (25-40); Mean Corpuscular HGB Conc 35.1 % (30-36); Mean Corpuscular Hemoglobin 31.9 PG (26-34); Mean Corpuscular Volume 90.8 fL (80-100); Monocytes Absolute Auto 600 /uL (0-900); Monocytes Percent Auto 6.8 % (3-14); Neutrophils Absolute Auto 5200 /uL (1500-7000); Neutrophils Percent Auto 57.1 % (50-75); Platelet Count 304 X10^3/uL (150-400); Red Blood Cell Count 5.22 X10^6/uL (4.5-5.9); Red Cell Distribution Width 13.6 % (11.6-14.8); White Blood Cell Count 9.2 X10^3/uL (4.5-11.0)
[2019-04-01 12:45] LABS: HEMOLYSIS < 15 (0-50); Potassium 4.1 mmol/L (3.4-5.1)
[2019-04-01 12:48] LABS: BUN Creatinine Ratio 12.9 (6-22); Blood Urea Nitrogen 9 mg/dL (9-20); Calcium 9.9 mg/dL (8.4-10.2); Carbon Dioxide 25 mmol/L (22-32); Chloride 105 mmol/L (98-107); Estimated Glomerular Filt Rate > 60.0 mL/min (>60); Glucose 110 mg/dL (70-100); Sodium 139 mmol/L (137-145)
[2019-04-01 13:00] VITALS: BP 122/75; PULSE 75; RESP 22; O2SAT 94
== END 2019-04-01 14:06 | disposition home or self-care (01) ==
PROVIDERS: Emergency Provider Emergency Medicine
DX: R00.2 Palpitations (principal)
CPT/HCPCS: 36591; 80048; 85025; 93005; 99282; 99284